=== PATIENT | male | born 1960 | race Caucasian/White ===

== ENCOUNTER → 2020-09-15 04:48 | Outpatient (CLI) | payer OTHER, SELFPAY ==
[2020-09-15 19:03] LABS: SARS-CoV-2 RNA PCR Negative
== END ==
PROVIDERS: PCP Internal Medicine; Visit Provider Internal Medicine Gastroenterology
DX: Z01.812 Encounter for preprocedural laboratory examination (principal); Z20.822 Contact with and (suspected) exposure to COVID-19
CPT/HCPCS: C9803; U0003; U0005

== ENCOUNTER 2020-09-18 01:22 | Day surgery (SDC) | payer SELFPAY ==
[2020-09-03 13:10] VITALS: BMI 31.6
[2020-09-18] MEDS: LACTATED RINGERS 1,000 ML 150 ML IV CONT (10:32)
[2020-09-18 10:35] VITALS: BP 139/100; PULSE 82; RESP 18; TEMP 36.4; O2SAT 97
--- NOTE | 2020-09-18 10:43 | WPDANESEPPF ---
Anes - Initial Pre Proc Eval Procedure: Operation Date: 09/18/20 11:00 Proposed Procedures p Colonoscopy - Kolton Negrete MD Date/Time: 09/18/20 10:43 Surgeon: Kolton Negrete MD Pre Op Diagnosis: Positive Cologuard Patient Data Age: 60 Gender: M Height: 6 ft 4 in Weight: 119.3 kg Last Vital Signs Temp 36.4 C 09/18/20 10:35 Pulse 82 09/18/20 10:35 Resp 18 09/18/20 10:35 BP 139/100 H 09/18/20 10:35 Pulse Ox 97 09/18/20 10:35 Allergies Allergy/AdvReac Type Severity Reaction Status Date / Time No Known Allergies Allergy Verified 09/18/20 10:35 Home Medications Medication Instructions Recorded Confirmed Type aspirin [Adult Low Dose Aspirin] 81 mg PO DAILY 09/03/20 09/03/20 History atorvastatin 40 mg PO DAILY 09/03/20 09/03/20 History metoprolol tartrate 25 mg PO DAILY 09/03/20 09/03/20 History testosterone cypionate mg 09/03/20 09/03/20 History Patient hx anesthesia problems: none Family hx anesthesia problems: none PMFSH Past Medical History Medical History Hyperlipidemia Hypertension SHAIKRA (obstructive sleep apnea) Social History Social History Substance use type: does not use Living arrangements: with family Gender identity (if verbalized by the patient): Female Spiritual care concerns: No Anes - Eval Final PreProcedure Day of Procedure 09/18/20 10:43 Patient weight: obese Heart: regular rate and rhythm Lungs: clear to auscultation Airway: Mallampati scale class II Neurological: alert and oriented Last oral intake: >/= 8 hours ASA classification: III Emergent: no Anesthetic plan: proceed Anesthesia type and monitoring: general GIVS and standard monitoring Informed Consent: The patient's anesthetic plan and its attendant risks and benefits were discussed with the patient/family/POA. Questions were solicited and answers provided to the satisfaction of the patient/family/POA.
--- NOTE | 2020-09-18 10:55 | PM.HPGS ---
History of Present Illness History of Present Illness Consent: Risks, benefits, and alternatives have been discussed and questions answered. Patient agrees to proceed with procedure. Chief complaint: Positive Cologuard Narrative: Christian Renee is a 60 year old male referred for colon cancer screening Review of Systems Review of Systems: All systems reviewed & are unremarkable except as noted in HPI and below PMFSH Past Medical History Medical History Hyperlipidemia Hypertension SHAKIRA (obstructive sleep apnea) Social History Social History Substance use type: does not use Living arrangements: with family Gender identity (if verbalized by the patient): Female Spiritual care concerns: No Meds Home Medications and Allergies Home Medications Medication Instructions Recorded Confirmed Type aspirin [Adult Low Dose Aspirin] 81 mg PO DAILY 09/03/20 09/03/20 History atorvastatin 40 mg PO DAILY 09/03/20 09/03/20 History metoprolol tartrate 25 mg PO DAILY 09/03/20 09/03/20 History testosterone cypionate mg 09/03/20 09/03/20 History Allergies Allergy/AdvReac Type Severity Reaction Status Date / Time No Known Allergies Allergy Verified 09/18/20 10:35 Vital Signs Vital Signs - 24 hr 09/18/20 10:35 Temperature 36.4 C Pulse Rate 82 Respiratory Rate 18 Blood Pressure 139/100 H Pulse Oximetry 97 Exam Resp: Auscultation: clear to auscultation bilaterally Cardio: Rate: regular rate Rhythm: regular rhythm GI: GI Palp: Yes Soft to palpation and No Tenderness to palpation present (GI) Assessment and Plan Assessment and plan (1) Colon cancer screening: Code(s): Z12.11 - Encounter for screening for malignant neoplasm of colon Status: Acute Assessment and Plan: Colonoscopy with possible biopsy or polypectomy or cautery or injection of substances.
[2020-09-18 11:19] VITALS: BP 100/65; PULSE 73; RESP 15; O2SAT 95
[2020-09-18 11:29] VITALS: BP 113/78; PULSE 64; RESP 14; O2SAT 95
[2020-09-18 11:39] VITALS: BP 126/72; PULSE 66; RESP 16; O2SAT 95
== END 2020-09-18 12:25 | disposition home or self-care (01) ==
PROVIDERS: PCP Internal Medicine; Visit Provider Internal Medicine Gastroenterology
PROC: 0DJD8ZZ Inspection of Lower Intestinal Tract, Via Natural or Artificial Opening Endoscopic (ICD-10-PCS; CPT 45378; principal; 2020-09-18 11:00)
DX: Z12.11 Encounter for screening for malignant neoplasm of colon (principal); D12.5 Benign neoplasm of sigmoid colon; R19.5 Other fecal abnormalities; Z79.82 Long term (current) use of aspirin; E78.5 Hyperlipidemia, unspecified; I10 Essential (primary) hypertension; G47.33 Obstructive sleep apnea (adult) (pediatric); E66.9 Obesity, unspecified; Z68.32 Body mass index [BMI] 32.0-32.9, adult
CPT/HCPCS: 45381; 45385; 88305; J2704; J7120